=== PATIENT | female | born 1950 | race African-American/Black ===

== ENCOUNTER 2017-04-03 13:07 | Emergency (ER) | payer OTHER, MEDICARE ==
[~2017-04-03] VITALS: Ht 157.5 cm; Wt 75.0 kg
[2017-04-03] MEDS ORDERED: ACETAMINOPHEN 325MG TABLET ONE (14:29)
[2017-04-03] MEDS ORDERED: AMLODIPINE 5MG TABLET PO ONE (14:30)
[2017-04-03 15:50] LABS: CHLORIDE 108 mEq/L (98-107)
[2017-04-03 15:59] LABS: CARBON DIOXIDE 28 mEq/L (21-32)
[2017-04-03 16:00] LABS: PROTHROMBIN TIME 10.1 sec (9.4-11.6)
[2017-04-03 16:09] LABS: BASOPHILS % 0.8 % (0.0-2.0); EOSINOPHILS % 1.6 % (0.0-5.0); HEMATOCRIT. 41.6 % (36.0-48.0); HEMOGLOBIN. 13.3 g/dL (12.0-16.0); LYMPHOCYTES % 27.3 % (20.0-50.0); MEAN CORPUSCULAR HEMOGLOBIN 27.8 pg (28.0-32.0); MEAN CORPUSCULAR VOLUME 86.6 fL (81.0-99.0); MEAN PLATELET VOLUME 8.8 fl (7.4-10.4); MONOCYTES % 5.9 % (2.0-8.0); NEUTROPHILS % 64.4 % (40.0-76.0); PLATELET 251 x1000/uL (130-400)
[2017-04-03 16:45] VITALS: BP 148/95
== END 2017-04-03 17:53 | disposition home or self-care (01) ==
LOC: ER 14:38
DX: I10 Essential (primary) hypertension (principal); R00.1 Bradycardia, unspecified
CPT/HCPCS: 36415; 70450; 71045; 80053; 85025; 85610; 93005; 99285